=== PATIENT | female | born 1935 | race Caucasian/White ===

== ENCOUNTER 2017-01-31 18:36 | Observation (INO) | payer MEDICARE, OTHER ==
[~2017-01-31] VITALS: Ht 160 cm; Wt 65.0 kg
[2017-01-31 18:41] VITALS: PULSE 67; RESP 18; TEMP 98.8; O2SAT 98
[2017-01-31 18:47] VITALS: BP 178/77; PULSE 65; RESP 18; TEMP 98.8; O2SAT 100
--- NOTE | 2017-01-31 19:17 | PD ---
HPI Chief Complaint: Neuro Symptoms/ Deficits Time Seen by Provider: 19:17 Travel History International Travel<30 days: No Contact w/Intl Traveler<30days: No Traveled to known affect area: No History of Present Illness HPI 81-year-old female came to the emergency room brought by EMS with history of dizziness and blurred vision for 2 hours. Patient seems awake and answering questions appropriately and does not seem to be in any distress. Her daughter is there with her and says she has history of macular degeneration but she has never complained like this before. Patient has history of CVA in the past. She also has history of dementia. No unilateral weakness or numbness. Her vital signs were stable. Speech is clear. No gait abnormality. [facility] Past Medical History Narrative Medical List of her past medical, surgical, social and family history was reviewed from the nursing note. Alzheimer's Disease: Yes Cardiovascular Problems: Yes High Cholesterol: Yes Cerebrovascular Accident: Yes GERD: Yes Hypertension: Yes Seizures: Yes Tetanus Vaccination: Unknown Influenza Vaccination: Yes ?: Not Past Surgical History Cholecystectomy: Yes Genitourinary Surgery: Yes (NEPHRECTOMY ) Hysterectomy: Yes Social History Alcohol Use: Yes (WINE OCCASIONALLY ) Tobacco Use: Yes (09/09 PPD ) Substance Use: No Allergies-Medications (Allergen,Severity, Reaction): Coded Allergies: Baclofen (Verified Allergy, Severe, 01/31/17) Cipro (Verified Allergy, Severe, 01/31/17) Lipitor (Verified Allergy, Severe, 01/31/17) Lyrica (Verified Allergy, Severe, 01/31/17) Neurontin (Verified Allergy, Severe, 01/31/17) Nexium (Verified Allergy, Severe, 01/31/17) Pravachol (Verified Allergy, Severe, 01/31/17) Reglan (Verified Allergy, Severe, 01/31/17) Wellbutrin (Verified Allergy, Severe, 01/31/17) Zanaflex (Verified Allergy, Severe, 01/31/17) Comments Awaiting for the list for allergies. Reported Meds & Prescriptions Reported Meds & Active Scripts Active Reported Acetaminophen ER (Acetaminophen) 650 Mg Tablet.er 650 Mg PO DAILY Sucralfate 1 Gm Tab 1 Gm PO TID on empty stomach Preservision Areds (Multiple Vitamins W/ Minerals) 1 Tab 1 Tab PO DAILY Ditropan (Oxybutynin Chloride) 5 Mg Tab 5 Mg PO DAILY Namenda Xr (Memantine) 28 Mg Caper 28 Mg PO HS Metoprolol Tartrate 25 Mg Tab 25 Mg PO BID Methotrexate 2.5 Mg Tab 2.5 Mg PO Q7D Lovastatin 20 Mg Tab 20 Mg PO HS Levetiracetam 500 Mg Tab 500 Mg PO BID Famotidine 20 Mg Tab 20 Mg PO BID Donepezil 23 Mg Tab 23 Mg PO HS Do not split, crush or chew. Narrative Medication List of her home medications reviewed from the nursing note. Review of Systems Except as stated in HPI: all other systems reviewed are Neg Physical Exam Narrative GENERAL: Awake, alert, elderly, no obvious distress SKIN: Focused skin assessment warm/dry. HEAD: Atraumatic. Normocephalic. EYES: Pupils equal and round. No scleral icterus. No injection or drainage. ENT: No nasal bleeding or discharge. Mucous membranes pink and moist. NECK: Trachea midline. No JVD. CARDIOVASCULAR: Regular rate and rhythm. No murmur appreciated. RESPIRATORY: No accessory muscle use. Clear to auscultation. Breath sounds equal bilaterally. GASTROINTESTINAL: Abdomen soft, non-tender, nondistended. Hepatic and splenic margins not palpable. MUSCULOSKELETAL: No obvious deformities. No clubbing. No cyanosis. No edema. NEUROLOGICAL: Awake and alert. No obvious cranial nerve deficits. Motor grossly within normal limits. Normal speech. NIH stroke score of 0 PSYCHIATRIC: Appropriate mood and affect; insight and judgment normal. Data Data Last Documented VS Vital Signs Date Time Temp Pulse Resp B/P Pulse Ox O2 Delivery O2 Flow Rate FiO2 01/31/17 19:23 67 18 161/79 100 Room Air 01/31/17 18:47 98.8 Orders Electrocardiogram (01/31/17 19:17) Prothrombin Time / Inr (Pt) (01/31/17 19:17) Complete Blood Count With Diff (01/31/17 19:17) Basic Metabolic Panel (Bmp) (01/31/17 19:17) Troponin I (01/31/17 19:17) Ct Brain W/O Iv Contrast(Rout) (01/31/17 19:17) Chest, Single Ap (01/31/17 19:17) Ecg Monitoring (01/31/17 19:17) Iv Access Insert/Monitor (01/31/17 19:17) Oximetry (01/31/17 19:17) Aspirin (Aspirin) (01/31/17 20:45) Admit Order (Ed Use Only) (01/31/17 20:52) Place In Observation (01/31/17 ) Code Status (01/31/17 20:48) Vital Signs (Adult) Q4H (01/31/17 20:48) Neuro Checks Q4H (01/31/17 20:48) Activity Bed Rest With Brp (01/31/17 20:48) Chair Mender / Telemetry .CONTINUOUS (01/31/17 20:48) Diet Heart Healthy (02/01/17 Breakfast) Sodium Chlor 0.9% 1000 Ml Inj (Ns 1000 M (01/31/17 20:48) Sodium Chloride 0.9% Flush (Ns Flush) (01/31/17 21:00) Sodium Chloride 0.9% Flush (Ns Flush) (01/31/17 21:00) Acetaminophen (Tylenol) (01/31/17 21:00) Ondansetron Inj (Zofran Inj) (01/31/17 21:00) Basic Metabolic Panel (Bmp) (02/01/17 06:00) Complete Blood Count With Diff (02/01/17 06:00) Troponin I (01/31/17 20:48) Troponin I (02/01/17 02:48) Scd Bilateral/Knee High RICK.BID (01/31/17 20:48) Naloxone Inj (Narcan Inj) (01/31/17 21:00) Docusate Sodium-Senna (Shama-Colace) (01/31/17 21:00) Magnesium Hydroxide Liq (Milk Of Magnesi (01/31/17 21:00) Sennosides (Senokot) (01/31/17 21:00) Bisacodyl Supp (Dulcolax Supp) (01/31/17 21:00) Lactulose Liq (Lactulose Liq) (01/31/17 21:00) Labs Laboratory Tests Test 01/31/17 19:21 White Blood Count 6.8 TH/MM3 Red Blood Count 4.44 MIL/MM3 Hemoglobin 13.8 GM/DL Hematocrit 40.6 % Mean Corpuscular Volume 91.6 FL Mean Corpuscular Hemoglobin 31.2 PG Mean Corpuscular Hemoglobin 34.0 % Concent Red Cell Distribution Width 14.8 % Platelet Count 214 TH/MM3 Mean Platelet Volume 8.3 FL Neutrophils (%) (Auto) 54.0 % Lymphocytes (%) (Auto) 34.4 % Monocytes (%) (Auto) 9.5 % Eosinophils (%) (Auto) 1.3 % Basophils (%) (Auto) 0.8 % Neutrophils # (Auto) 3.6 TH/MM3 Lymphocytes # (Auto) 2.3 TH/MM3 Monocytes # (Auto) 0.6 TH/MM3 Eosinophils # (Auto) 0.1 TH/MM3 Basophils # (Auto) 0.1 TH/MM3 CBC Comment DIFF FINAL Differential Comment Prothrombin Time 10.0 SEC Prothromb Time International 0.9 RATIO Ratio Sodium Level 132 MEQ/L Potassium Level 4.5 MEQ/L Chloride Level 97 MEQ/L Carbon Dioxide Level 27.3 MEQ/L Anion Gap 8 MEQ/L Blood Urea Nitrogen 7 MG/DL Creatinine 0.80 MG/DL Estimat Glomerular Filtration 69 ML/MIN Rate Random Glucose 79 MG/DL Calcium Level 9.4 MG/DL Troponin I LESS THAN 0.02 NG/ML MDM Medical Decision Making Medical Screen Exam Complete: Yes Emergency Medical Condition: Yes Medical Record Reviewed: Yes Interpretation(s) Twelve-lead EKG was reviewed by me. Normal sinus rhythm, left axis deviation, incomplete right bundle branch block, nonspecific ST-T wave changes. Heart rate of 65 bpm. Differential Diagnosis TIA, CVA, dizziness Narrative Course 8:41 PM CAT scan report is back and no acute changes. Blood test results are acceptable except for mild hyponatremia. Awaiting for the hospitalist to admit the patient for observation. Procedures EKG Prior to Arrival: No Diagnosis Primary Impression: TIA (transient ischemic attack) Qualified Code: G45.9 - Transient cerebral ischemia, unspecified type Additional Impressions: Dizziness Hyponatremia Admitting Information Admitting Physician Requests: Observation Scripts Aspirin DR (Aspirin EC)325 Mg [id number] Mg PO DAILY #30 TAB Ref 0 Prov:Mercedes Holland 02/02/17 Eula Gomez MD January 31, 2017 19:17
[2017-01-31 19:23] VITALS: BP 161/79; PULSE 67; RESP 18; O2SAT 100
[2017-01-31 19:35] LABS: AUTOMATED NEUTROPHIL # 3.6 TH/MM3 (1.8-7.7); BASOPHIL # 0.1 TH/MM3 (0-0.2); BASOPHIL % 0.8 % (0.0-2.0); EOSINOPHIL # 0.1 TH/MM3 (0-0.4); EOSINOPHIL % 1.3 % (0.0-4.0); HEMATOCRIT 40.6 % (35.0-46.0); HEMO FLAGS DIFF FINAL; LYMPH % 34.4 % (9.0-44.0); LYMPHOCYTE # 2.3 TH/MM3 (1.0-4.8); MEAN CELL VOLUME 91.6 FL (80.0-100.0); MEAN CORPUSCULAR HEMOGLOBIN 31.2 PG (27.0-34.0); MONO % 9.5 % (0.0-8.0); PLATELET COUNT 214 TH/MM3 (150-450); RED BLOOD COUNT 4.44 MIL/MM3 (4.00-5.30); RED CELL DISTRIBUTION WIDTH 14.8 % (11.6-17.2); WHITE BLOOD COUNT 6.8 TH/MM3 (4.0-11.0)
[2017-01-31 19:46] LABS: ANION GAP 8 MEQ/L (5-15); BICARBONATE 27.3 MEQ/L (21.0-32.0); BLOOD UREA NITROGEN 7 MG/DL (7-18); CHLORIDE 97 MEQ/L (98-107); GLOMERULAR FILTRATION RATE 69 ML/MIN (>89); POTASSIUM 4.5 MEQ/L (3.5-5.1); SODIUM (NA) 132 MEQ/L (136-145)
[2017-01-31 19:47] LABS: INTERNATIONAL NORMALIZED RATIO 0.9 RATIO
--- NOTE | 2017-01-31 19:51 | RADRPT ---
EXAM DATE/TIME: 01/31/2017 19:28 [facility] COMPARISON: No previous studies available for comparison. INDICATIONS : Cephalgia and blurry vision. RADIATION DOSE: 56.35 CTDIvol (mGy) MEDICAL HISTORY : Alzheimer's Seizures. Cardiovascular diseaseCVA. Hypertension. GERD. SURGICAL HISTORY : Hysterectomy. Cholecystectomy.Nephrectomy. ENCOUNTER: Initial ACUITY: 1 day PAIN SCALE: 0/10 LOCATION: cranial TECHNIQUE: Multiple contiguous axial images were obtained of the head. Using automated exposure control and adj ustment of the mA and/or kV according to patient size, radiation dose was kept as low as reasonably a chievable to obtain optimal diagnostic quality images. FINDINGS: CEREBRUM: The ventricles are normal for age. No evidence of midline shift, mass lesion, hemorrhage or acute in farction. No extra-axial fluid collections are seen. POSTERIOR FOSSA: The cerebellum and brainstem are intact. The 4th ventricle is midline. The cerebellopontine angle i s unremarkable. EXTRACRANIAL: The visualized portion of the orbits is intact. SKULL: The calvaria is intact. No evidence of skull fracture. CONCLUSION: No acute disease. Aurelio Weaver MD FACR on January 31, 2017 at 19:49 Board Certified Radiologist. This report was verified electronically.
[2017-01-31] MEDS ORDERED: FAMO20TA2 PO (19:59)
[2017-01-31] MEDS ORDERED: LOVA20TA PO (19:59)
[2017-01-31] MEDS ORDERED: METH2.5T PO (19:59)
[2017-01-31] MEDS ORDERED: DONE1TAB63 PO (19:59)
[2017-01-31] MEDS ORDERED: OCUVTAB4 PO (19:59)
[2017-01-31] MEDS ORDERED: ACET650T39 PO (19:59)
[2017-01-31] MEDS ORDERED: METO25TA3 PO (19:59)
[2017-01-31] MEDS ORDERED: OXYB5TAB10 PO (19:59)
[2017-01-31] MEDS ORDERED: MEMA28CA PO (19:59)
[2017-01-31] MEDS ORDERED: LEVE500T8 PO (19:59)
[2017-01-31] MEDS ORDERED: SUCR1TAB PO (19:59)
--- NOTE | 2017-01-31 20:18 | RADRPT ---
EXAM DATE/TIME: 01/31/2017 19:58 [facility] COMPARISON: No previous studies available for comparison. INDICATIONS : <<Pressure in head and blurry vision. Patient was hypertensive. MEDICAL HISTORY : Osteoarthritis. Hypertension SURGICAL HISTORY : Spinal rods. ENCOUNTER: Initial ACUITY: 1 day PAIN SCORE: Non-responsive. LOCATION: Bilateral chest FINDINGS: Previous spinal fixation is noted. Heart is minimally enlarged. Pulmonary vascularity is normal. M inimal parenchymal opacity is seen in the left base. Granuloma is seen in the right upper lobe. CONCLUSION: Mild compensated cardiomegaly, negative for an acute process. Aurelio Weaver MD FACR on January 31, 2017 at 20:11 Board Certified Radiologist. This report was verified electronically.
[2017-01-31] MEDS ORDERED: ASPIRIN 325 MG TAB PO ONE (20:45)
[2017-01-31] MEDS ORDERED: BISACODYL 10 MG SUPP RECTAL PRN (21:00)
[2017-01-31] MEDS ORDERED: SODIUM CHLORIDE 0.9% FLUSH 10 ML FLUSH IV FLUSH PRN (21:00)
[2017-01-31] MEDS ORDERED: METHOTREXATE 2.5 MG TAB PO SCH (21:00)
[2017-01-31] MEDS ORDERED: ONDANSETRON HCL 4 MG/2 ML VIAL IVP PRN (21:00)
[2017-01-31] MEDS: DONEPEZIL HCL 23 MG TAB PO SCH (21:00)
[2017-01-31] MEDS: DOCUSATE SODIUM 50 MG/SENNA 8.6 MG TAB PO SCH (21:00)
[2017-01-31] MEDS ORDERED: NALOXONE HCL 0.4 MG/ML AMP IV PRN (21:00)
[2017-01-31] MEDS ORDERED: ACETAMINOPHEN 325 MG TAB PO PRN (21:00)
[2017-01-31] MEDS: FAMOTIDINE 20 MG TAB PO SCH (21:00)
[2017-01-31] MEDS ORDERED: MAGNESIUM HYDROXIDE SUSP 30 ML CUP PO PRN (21:00)
[2017-01-31] MEDS ORDERED: LACTULOSE SYRUP 20 GM/30 ML CUP PO PRN (21:00)
[2017-01-31] MEDS: PRAVASTATIN SOD 20 MG TAB PO SCH (21:00)
[2017-01-31] MEDS: SODIUM CHLORIDE 0.9% FLUSH 10 ML FLUSH IV FLUSH SCH (21:41)
--- NOTE | 2017-01-31 22:27 | RADRPT ---
EXAM DATE/TIME: 01/31/2017 21:38 [facility] COMPARISON: No previous studies available for comparison. INDICATIONS : Transient ischemic attack. MEDICAL HISTORY : Hypercholesterolemia. Hypertension. Gastroesophageal reflux disease. Cerebrovas cular accident. Alzheimer's disease. seizures. SURGICAL HISTORY : Cholecystectomy. Hysterectomy. Nephrectomy. Spinal surgery. ENCOUNTER: Initial ACUITY: 1 day PAIN SCORE: 0/10 LOCATION: Bilateral neck PEAK SYSTOLIC VELOCITIES (cm/sec): ICA/CCA RATIO: Right: 1.3 Left: 1.0 ICA: Right: 111 Left: 86 CCA: Right: 85 Left: 87 ECA: Right: 91 Left: 65 VERTEBRAL: Right: 44 antegrade Left: 47 antegrade Elevated flow velocities and ICA/CCA ratios have been found to correlate with increased degrees of vessel stenosis, calculated as percentage of diameter relative to a normal segment of distal ICA/CCA FINDINGS: RIGHT CAROTID: There is no evidence for a hemodynamically significant carotid stenosis. Minimal int imal hyperplasia is present with scattered calcific plaque. LEFT CAROTID: There is no evidence for a hemodynamically significant carotid stenosis. Minimal inti mal hyperplasia is present with scattered calcific plaque. VERTEBRAL ARTERIES: Flow is antegrade in both vertebral arteries. MISCELLANEOUS: There are no ancillary masses or adenopathy. CONCLUSION: Negative examination for a hemodynamically significant carotid stenosis. Aurelio Weaver MD FACR Board Certified Radiologist. This report was verified electronically.
[2017-01-31 23:02] VITALS: BP 132/60; PULSE 64; RESP 18; TEMP 98.8; O2SAT 98
[2017-02-01] MEDS: SENNOSIDES 8.6 MG TAB PO PRN ×2 (00:40→00:44)
[2017-02-01] MEDS: levETIRAcetam 500 MG TAB PO SCH ×3 (00:40→21:17)
[2017-02-01] MEDS: METOPROLOL TARTRATE 25 MG TAB PO SCH ×3 (00:40→21:00)
[2017-02-01] MEDS: PRAVASTATIN SOD 20 MG TAB PO SCH (00:41)
[2017-02-01] MEDS: SODIUM CHLOR 0.9% 1000 ML INJ 1,000 ML IV SCH ×2 (00:43→17:53)
[2017-02-01] MEDS: SODIUM CHLORIDE 0.9% FLUSH 10 ML FLUSH IV FLUSH SCH ×2 (00:43→21:16)
[2017-02-01 03:54] LABS: AUTOMATED NEUTROPHIL # 2.8 TH/MM3 (1.8-7.7); BASOPHIL # 0.1 TH/MM3 (0-0.2); EOSINOPHIL # 0.1 TH/MM3 (0-0.4); HEMATOCRIT 36.8 % (35.0-46.0); HEMO FLAGS DIFF FINAL; LYMPHOCYTE # 2.5 TH/MM3 (1.0-4.8); MEAN CORPUSCULAR HEMOGLOBIN 30.3 PG (27.0-34.0); MEAN CORPUSCULAR HGB CONC 32.9 % (32.0-36.0); MONO % 13.7 % (0.0-8.0); NEUT % 43.3 % (16.0-70.0); PLATELET COUNT 185 TH/MM3 (150-450); RED CELL DISTRIBUTION WIDTH 14.6 % (11.6-17.2); WHITE BLOOD COUNT 6.4 TH/MM3 (4.0-11.0)
[2017-02-01 03:58] VITALS: BP 96/59; RESP 18; TEMP 98.5; O2SAT 94
[2017-02-01 04:18] LABS: BICARBONATE 28.8 MEQ/L (21.0-32.0); POTASSIUM 3.8 MEQ/L (3.5-5.1)
[2017-02-01 04:20] LABS: HDL CHOLESTEROL 64.4 MG/DL (40.0-60.0)
--- NOTE | 2017-02-01 08:34 | HHI.HP ---
HPI [facility] Primary [facility] Physician Chase Sigala M.D. Admission Diagnosis TIA, dizziness Diagnoses: Chief Complaint: blurry vision, dizziness (Mercedes Holland) Travel History International Travel<30 Days: No Contact w/Intl Traveler <30 Da: No Traveled to Known Affected Are: No (Mercedes Holland) History of Present Illness This is an 81 year old female with hx of CVA, CAD, dementia, macular degeneration, HTN. Presented to ED with c/o dizziness, lightheadedness, headache , blurry vision, could not walk. States vision usually blurry but it was more than usual, head felt "fullness", "did not feel right". No paresthesias, no speech difficulties. Feels that she has problems "thinking". Has hx of dementia but overall answering questions and oriented to self, place, situation and year. Has no focal deficits. States that she ambulates with walker due to RA. Denies other symptoms such as CP, SOB, fever, chills. Labs done in ED were okay , mild hyponatremia. CT head negative. At this time, pt. is back to her baseline. Has no complaints. Pt. admitted for further evaluation and treatment. (Mercedes Holland) Review of Systems ROS Limitations: Poor Historian Constitutional: COMPLAINS OF: Dizziness Eyes: COMPLAINS OF: Blurred vision (chronic blurry vision however more yesterday ) Musculoskeletal: COMPLAINS OF: Joint pain Neurologic: COMPLAINS OF: Headache (head doesn't feel right, feels fullness ) Other memory problems (Mercedes Holland) Past Family Social History Past Medical History HTN CVA Hyperlipidemia CA NH CAD Tobacco abuse Seizure disorder Migraines Dry macular degeneration Dementia RA Past Surgical History Nephrectomy Hysterectomy Spinal surgery Cholecystectomy Reported Medications Reported Meds & Active Scripts Active Reported Acetaminophen ER (Acetaminophen) 650 Mg Tablet.er 650 Mg PO DAILY Sucralfate 1 Gm Tab 1 Gm PO TID on empty stomach Preservision Areds (Multiple Vitamins W/ Minerals) 1 Tab 1 Tab PO DAILY Ditropan (Oxybutynin Chloride) 5 Mg Tab 5 Mg PO DAILY Namenda Xr (Memantine) 28 Mg Caper 28 Mg PO HS Metoprolol Tartrate 25 Mg Tab 25 Mg PO BID Methotrexate 2.5 Mg Tab 2.5 Mg PO Q7D Lovastatin 20 Mg Tab 20 Mg PO HS Levetiracetam 500 Mg Tab 500 Mg PO BID Famotidine 20 Mg Tab 20 Mg PO BID Donepezil 23 Mg Tab 23 Mg PO HS Do not split, crush or chew. (Mercedes Holland) Allergies: Coded Allergies: Baclofen (Verified Allergy, Severe, 01/31/17) Cipro (Verified Allergy, Severe, 01/31/17) Lipitor (Verified Allergy, Severe, 01/31/17) Lyrica (Verified Allergy, Severe, 01/31/17) Neurontin (Verified Allergy, Severe, 01/31/17) Nexium (Verified Allergy, Severe, 01/31/17) Pravachol (Verified Allergy, Severe, 01/31/17) Reglan (Verified Allergy, Severe, 01/31/17) Wellbutrin (Verified Allergy, Severe, 01/31/17) Zanaflex (Verified Allergy, Severe, 01/31/17) Active Ordered Medications Inpatient Medications Acetaminophen (Tylenol) 650 mg Q4H PRN PO TEMP > 100.4; Start 01/31/17 at 21:00 Aspirin 325 mg 325 mg ONCE ONCE PO Last administered on 02/01/17 00:40; Start 01/31/17 at 20:45; Stop 01/31/17 at 20:46; Status DC Bisacodyl (Dulcolax Supp) 10 mg DAILY PRN RECTAL SEVERE CONSITIPATION; Start at 21:00 Donepezil HCl (Aricept) 23 mg HS PO ; Start 01/31/17 at 21:00 Famotidine (Pepcid) 20 mg BID PO ; Start 01/31/17 at 21:00 Lactulose (Lactulose Liq) 30 ml DAILY PRN PO SEVERE CONSITIPATION; Start at 21:00 Levetriacetam (Keppra) 500 mg BID PO Last administered on 02/01/17 00:40; Start 01/31/17 at 21:00 Magnesium Hydroxide (Milk Of Magnesia Liq) 30 ml Q12H PRN PO MILD - MODERATE CONSTIPATION; Start 01/31/17 at 21:00 Methotrexate (Rheumatrex) 2.5 mg Q7D PO Last administered on 02/01/17 00:43; Start 01/31/17 at 21:00 Metoprolol Tartrate (Lopressor) 25 mg BID PO Last administered on 02/01/17 00: 40; Start 01/31/17 at 21:00 Naloxone HCl (Narcan Inj) 0.4 mg UNSCH PRN IV SEE LABEL COMMENTS; Start at 21:00 Ondansetron HCl (Zofran Inj) 4 mg Q6H PRN IVP NAUSEA OR VOMITING; Start at 21:00 Patient Own Medication PT OWN MED: NAMENDA... HS PO Alzheimer Disease; Start at 21:00 Pneumococcal Polyvalent Vaccine (Pneumovax-23 Inj) 25 mcg ONCE ONCE IM ; Start 02/01/17 at 09:00; Stop 02/01/17 at 09:01 Pravastatin Sodium (Pravachol) 20 mg HS PO Last administered on 02/01/17 00:41 ; Start 01/31/17 at 21:00 Senna/Docusate Sodium (Shama-Colace) 1 tab BID PO ; Start 01/31/17 at 21:00 Sennosides (Senokot) 17.2 mg Q12H PRN PO MODERATE - SEVERE CONSTIPATION Last administered on 02/01/17 00:44; Start 01/31/17 at 21:00 Sodium Chloride (NS 1000 ml Inj) 1,000 ml @ 50 mls/hr Q20H IV Last administered on 02/01/17 00:43; Start 01/31/17 at 20:48 Sodium Chloride (NS Flush) 2 ml BID IV FLUSH Last administered on 02/01/17 00: 43; Start 01/31/17 at 21:00 Sucralfate (Carafate) 1 gm TIDAC PO ; Start 02/01/17 at 08:00 Family History Father from ETOH abuse complications Social History Lives at [facility]. Has a daughter who lives close by. No ETOH, smokes 1 ppd every 3 days, no substance abuse. Uses walker for ambulation. (Mercedes Holland) Physical Exam Vital Signs Vital Signs Date Time Temp Pulse Resp B/P Pulse Ox O2 Delivery O2 Flow Rate FiO2 02/01/17 03:58 98.5 18 96/59 94 01/31/17 23:02 98.8 64 18 132/60 98 01/31/17 19:23 67 18 161/79 100 Room Air 01/31/17 18:47 98.8 65 18 178/77 100 Room Air 01/31/17 18:47 63 18 100 Room Air 01/31/17 18:41 98.8 67 18 98 Physical Exam GENERAL: This is a well-nourished, well-developed patient, in no apparent distress. SKIN: No rashes, ecchymoses or lesions. Cool and dry. HEAD: Atraumatic. Normocephalic. No temporal or scalp tenderness. EYES: Pupils equal round and reactive. Extraocular motions intact. No scleral icterus. No injection or drainage. ENT: Nose without bleeding, purulent drainage or septal hematoma. Throat without erythema, tonsillar hypertrophy or exudate. Uvula midline. Airway patent. Left carotid bruit. NECK: Trachea midline. No JVD or lymphadenopathy. Supple, nontender, no meningeal signs. CARDIOVASCULAR: Regular rate and rhythm with soft murmur. RESPIRATORY: Clear to auscultation. Breath sounds equal bilaterally. No wheezes , rales, or rhonchi. GASTROINTESTINAL: Abdomen soft, non-tender, nondistended. No hepato-splenomegaly , or palpable masses. No guarding. MUSCULOSKELETAL: Extremities without clubbing, cyanosis, or edema. No joint tenderness, effusion, or edema noted. No calf tenderness. Negative Homans sign bilaterally. NEUROLOGICAL: Awake, oriented x 3. Poor historian. No focal deficits. Speech clear Laboratory Laboratory Tests Test 01/31/17 02/01/17 19:21 03:35 White Blood Count 6.8 6.4 Red Blood Count 4.44 4.00 Hemoglobin 13.8 12.1 Hematocrit 40.6 36.8 Mean Corpuscular Volume 91.6 92.0 Mean Corpuscular Hemoglobin 31.2 30.3 Mean Corpuscular Hemoglobin 34.0 32.9 Concent Red Cell Distribution Width 14.8 14.6 Platelet Count 214 185 Mean Platelet Volume 8.3 7.7 Neutrophils (%) (Auto) 54.0 43.3 Lymphocytes (%) (Auto) 34.4 40.0 Monocytes (%) (Auto) 9.5 13.7 Eosinophils (%) (Auto) 1.3 2.0 Basophils (%) (Auto) 0.8 1.0 Neutrophils # (Auto) 3.6 2.8 Lymphocytes # (Auto) 2.3 2.5 Monocytes # (Auto) 0.6 0.9 Eosinophils # (Auto) 0.1 0.1 Basophils # (Auto) 0.1 0.1 CBC Comment DIFF FINAL DIFF FINAL Differential Comment Prothrombin Time 10.0 Prothromb Time International 0.9 Ratio Sodium Level 132 137 Potassium Level 4.5 3.8 Chloride Level 97 100 Carbon Dioxide Level 27.3 28.8 Anion Gap 8 8 Blood Urea Nitrogen 7 8 Creatinine 0.80 0.95 Estimat Glomerular Filtration 69 57 Rate Random Glucose 79 82 Calcium Level 9.4 8.9 Troponin I LESS THAN 0.02 LESS THAN 0.02 Triglycerides Level 117 Cholesterol Level 171 LDL Cholesterol 83 HDL Cholesterol 64.4 Cholesterol/HDL Ratio 2.65 (Mercedes Holland) Result Diagram: 02/01/17 0335 02/01/175 Imaging Last Impressions Head CT 01/31/171916 Signed Impressions: Service Date/Time: Tuesday, January 31, 2017 19:28 - CONCLUSION: No acute disease. Aurelio Weaver MD FACR Chest X-Ray 01/31/171916 Signed Impressions: Service Date/Time: Tuesday, January 31, 2017 19:58 - CONCLUSION: Mild compensated cardiomegaly, negative for an acute process. Aurelio Weaver MD FACR Carotid Artery Ultrasound 01/31/17 0000 Signed Impressions: Service Date/Time: Tuesday, January 31, 2017 21:38 - CONCLUSION: Negative examination for a hemodynamically significant carotid stenosis. Aurelio Weaver MD (Mercedes Holland) Assessment and Plan Problem List: (1) TIA (transient ischemic attack) (2) Dizziness (3) Hyponatremia (4) Hyperlipidemia (5) Seizure disorder (6) HTN (hypertension) (7) History of CVA (cerebrovascular accident) (8) Tobacco abuse (9) Hx of migraines (10) Macular degeneration Assessment and Plan Admit to Dr. Nieto 81 year old elderly female with hx of CVA, dementia, HTN, Seizure disorder. Presented to ED with c/o blurry vision, more than usual; dizziness, lightheadedness, headache, could not walk. Initial CT head negative. Pt. now asymptomatic -neuro checks -Neurology consult pending -Continue with ASA 325 mg PO daily -continue statins -Lipid profile results noted, will checks HgbA1C -CUS done, no stenosis. -will order 2D echo, EEG -MRI brain pending -will order PT/OT/ST HTN -permissive HTN -resume home meds Hyperlipidemia -continue home meds -lipid profile done Dementia, stable, forgetful but otherwise appropriate -continue home meds Seizure disorder, doesn't recall last seizure. -continue Keppra, level pending -EEG will be ordered. Hx migraines, states headache did not feel like typical migraines -monitor Tobacco abuse -counseling done, not interested in quitting. Home medications reviewed initiated as indicated. SCDs for DVT prophylaxis Plan of care discussed with attending, RN, and pt. Further management of the pt will be dependent on the hospital course This pt. was seen by myself and Dr. Nieto, this H/P is written on her behalf. ( Mercedes Holland) Assessment and Plan Patient seen and examined still complaining of soreness b/l temples MRI neg orthostatics NEG wants a scooter EEG done results pending Appreciate neuro input ESR PT eval discussed with patient / daughter at bed side discussed with nursing staff discussed with Mercedes GALLEGOS (Mleody Nieto MD) Problem Qualifiers (1) TIA (transient ischemic attack): Qualified Code: G45.9 - Transient cerebral ischemia, unspecified type (2) Hyperlipidemia: Qualified Code: E78.5 - Hyperlipidemia, unspecified hyperlipidemia type (3) HTN (hypertension): Qualified Code: I10 - Essential hypertension Mercedes Holland February 01, 2017 08:34 Melody Nieto MD February 01, 2017 14:08
--- NOTE | 2017-02-01 08:38 | RADRPT ---
EXAM DATE/TIME: 02/01/2017 08:12 [facility] COMPARISON: CT BRAIN W/O CONTRAST, January 31, 2017, 19:28. INDICATIONS : Dizziness. MEDICAL HISTORY : None. SURGICAL HISTORY : Nephrectomy, right. Spinal jovita. ENCOUNTER: Initial ACUITY: 1 day PAIN SCORE: 0/10 LOCATION: cranial TECHNIQUE: Multiplanar, multisequence MRI of the brain was performed without contrast. FINDINGS: CEREBRUM: There is moderate generalized atrophy. Ventricles are prominent but within normal limits given degree of atrophy present. No evidence of midline shift, mass lesion, hemorrhage or acute infarction. No extraaxial fluid collections are seen. The pituitary gland and suprasellar cistern are normal in con figuration. WHITE MATTER: There is moderate severity periventricular and subcortical white matter signal change bilaterally. POSTERIOR FOSSA: The cerebellum and brainstem demonstrate no acute finding. The 4th ventricle is midline. The cerebel lopontine angle is unremarkable. The cerebellar tonsils are normal in position. DIFFUSION IMAGING: No focal areas of restricted diffusion are seen. No evidence of acute infarction. EXTRACRANIAL: The visualized portions of the orbits and paranasal sinuses are unremarkable. CONCLUSION: 1. No acute intracranial abnormality is identified. 2. Chronic changes include generalized atrophy and moderate severity periventricular white matter trisha nge characteristic of chronic microvascular ischemia. Chase Reich MD on February 01, 2017 at 8:31 Board Certified Radiologist. This report was verified electronically.
[2017-02-01] MEDS ORDERED: PNEUMOCOCCAL POLYVALENT INJ 25 MCG/0.5 ML SYR IM ONE (09:00)
[2017-02-01] MEDS: FAMOTIDINE 20 MG TAB PO SCH ×2 (10:46→21:18)
[2017-02-01] MEDS: SUCRALFATE 1 GM TAB PO SCH ×3 (10:46→17:53)
[2017-02-01] MEDS: DOCUSATE SODIUM 50 MG/SENNA 8.6 MG TAB PO SCH ×2 (10:46→21:18)
--- NOTE | 2017-02-01 11:02 | MB ---
cc: CODY CHOI DATE OF CONSULTATION: 02/01/2017 REASON FOR CONSULTATION: HISTORY OF PRESENT ILLNESS: The patient is an 81-year-old right-handed woman with a history of rheumatoid arthritis. She uses a walker at baseline, low blood pressure in the past, hypercholesterolemia, HI, one kidney removed about 10 years ago for kidney cancer, some renal insufficiency possibly versus some bladder incontinence, a stroke about 10 years ago. She had several where she had a headache and fell down. She has had seizures which she decided is petit mal for 20 years but has not had one in the last ten years, on Keppra, as far as I can tell. She is not a very good historian. She feels dizzy if she stands up too quickly and that occurred yesterday. She had some imbalance with that, but yesterday she had a throbbing bitemporal headache. She does not usually have headaches. She has a history of migraines but she has not had them in years. No new medicines. No vision loss. No chest pain or palpitations. She complained in the ER of blurred vision but said she did not have any vision problems to me. She had some macular degeneration. SOCIAL HISTORY: She still is a smoker and I asked her not to especially with a history of possible stroke. She is not a drinker. She lives in assisted living. FAMILY HISTORY: Negative for cancer, seizure, stroke, positive for CAD. REVIEW OF SYSTEMS: She denied any hypertension, diabetes, A-fib, Coumadin, hepatic disease, pulmonary disease, thyroid disease, lupus, ulcer. MEDICATIONS: At the [facility] but this point about [facility] by she complained of the ER for blurred vision but says she denied any vision problems to me she has some macular degeneration. ALLERGIES: NO KNOWN DRUG ALLERGIES. MEDICATIONS 1. Aricept 23 mg at bedtime. 2. Famotidine. 3. Keppra 500 b.i.d. 4. Lovastatin. 5. Methotrexate 6. Metoprolol 7. Namenda XR. 8. Ditropan. 9. Acetaminophen. PHYSICAL EXAMINATION: Afebrile, 18. Blood pressure 96/59 to 178/77. NEUROLOGIC: There are no carotid bruits. Heart was regular rhythm. I did not detect a murmur. Pupils are equal, visual taylor full. Extraocular movements intact without nystagmus. Face is symmetric. Normal sensation. Tongue was midline. No drift. Normal strength in upper and lower extremities bilaterally. DTRs are trace throughout. Toes are downgoing bilaterally. Pinprick is intact throughout. No apparent distress. She did not know the year. She said it was 2015 and was off on the month, November. LABORATORY DATA CBC is normal. Basic metabolic profile, troponin normal. LDL cholesterol normal. Coags normal. Keppra pending. MRI of the brain normal for age. Carotid ultrasound negative. IMAGING STUDIES: Chest x-ray, some cardiomegaly otherwise normal. CT scan of the brain, negative. IMPRESSION: I think she looks well at this time. She sounds like she has some orthostatic hypotension. She felt like her temples were slightly tender, which are particularly tender to me. Will check a sed rate, check some orthostatic blood pressures on her. EEG is being done. I think overall she looks well neurologically. She might have some orthostasis. She appears to have some dementia, although she tells me she is at a genius level. Cognitive function in the past. She said she felt a little disoriented but appears to have some dementia at least by the meds she is on. I will be following her with you in the hospital. I think she could be discharged, however, if her standing blood pressures are fine. We could just keep her on an aspirin a day. A baby aspirin would be fine. I note she has been in sinus rhythm here so far. MD JONATHON Mari/ANILA /10:31 AM /10:49 AM
[2017-02-01 11:41] VITALS: BP_SYST 117; BP_SYST 121; BP_SYST 98; BP_DIAS 53; BP_DIAS 57; BP_DIAS 60; PULSE 71; RESP 18; TEMP 97.4; O2SAT 97
[2017-02-01 11:58] LABS: FREE T4 0.95 NG/DL (0.76-1.46)
[2017-02-01 13:44] VITALS: PULSE 70
--- NOTE | 2017-02-01 14:33 | EKG ---
Date Performed: 01/31/2017 Time Performed: 19:42:03 PTAGE: 81 years EKG: LEFT AXIS DEVIATION RIGHT VENTRICULAR CONDUCTION DISTURBANCE Compared to previous tracing, there is improvement in the R-wave progression across the precordium, otherwise no significant change . ABNORMAL ECG PREVIOUS TRACING : 06/22/1998 20.12 DOCTOR: Vitor Morales Interpretating Date/Time 02/01/2017 14:31:37
[2017-02-01 15:32] VITALS: BP 118/59; PULSE 69; RESP 20; TEMP 98.4; O2SAT 96
[2017-02-01 21:00] VITALS: PULSE 74
[2017-02-01] MEDS ORDERED: PT OWN NAMENDA XR 28 MG PO SCH (21:00)
[2017-02-01] MEDS: DONEPEZIL HCL 23 MG TAB PO SCH (21:17)
[2017-02-01 23:30] VITALS: BP 110/65; PULSE 70; RESP 18; TEMP 98; O2SAT 96
[2017-02-02 04:50] VITALS: BP 147/67; PULSE 70; RESP 18; TEMP 98.5; O2SAT 99
[2017-02-02] MEDS ORDERED: ASPI325T33 PO (07:39)
--- NOTE | 2017-02-02 07:40 | HHI.DCPOC ---
Discharge Care Plan Diagnosis: (1) TIA (transient ischemic attack) (2) Dizziness (3) Hyperlipidemia (4) Hyponatremia (5) Seizure disorder (6) Tobacco abuse (7) Macular degeneration (8) HTN (hypertension) (9) History of CVA (cerebrovascular accident) (10) Hx of migraines Your Health Problems Are: Difficulty with ADL Goals to Promote Your Health * To prevent worsening of your condition and complications * To maintain your health at the optimal level Directions to Meet Your Goals Take your medications as prescribed Follow your dietary instruction Follow activity as directed Keep your appointments as scheduled Take your immunizations and boosters as scheduled If your symptoms worsen call your PCP, if no PCP go to Urgent Care Center or Emergency Room Smoking is Dangerous to Your Health. Avoid second hand smoke Call the 24-hour hour crisis hotline for domestic abuse at [facility]. [facility] February 02, 2017 07:39
[2017-02-02 07:47] VITALS: BP 106/61; PULSE 73; RESP 16; TEMP 97.6; O2SAT 95
--- NOTE | 2017-02-02 08:20 | HHI.PR ---
Subjective Remarks Complaining of not feeling good, states a lot of things are happening Upset because water was spilled on the floor and table Complaining of buttocks been "raw", had loose stool. 1 episode recorded of stool no cp no sob mild headache no dizziness doesn't want HHC, or PT "I'm doing fine" Objective Objective Results - Vital Signs Date Time Temp Pulse Resp B/P Pulse Ox O2 Delivery O2 Flow Rate FiO2 02/02/17 07:47 97.6 73 16 106/61 95 02/02/17 04:50 98.5 70 18 147/67 99 02/01/17 23:30 98.0 70 18 110/65 96 02/01/17 21:00 74 02/01/17 15:32 98.4 69 20 118/59 96 02/01/17 13:44 70 02/01/17 11:41 97.4 71 18 98/57 97 117/53 121/60 Result Diagram: 02/01/17 0335 02/01/17 0335 Imaging Last Impressions Head CT 01/31/171916 Signed Impressions: Service Date/Time: Tuesday, January 31, 2017 19:28 - CONCLUSION: No acute disease. Aurelio Weaver MD FACR Chest X-Ray 01/31/171916 Signed Impressions: Service Date/Time: Tuesday, January 31, 2017 19:58 - CONCLUSION: Mild compensated cardiomegaly, negative for an acute process. Aurelio Weaver MD FACR Carotid Artery Ultrasound 01/31/17 0000 Signed Impressions: Service Date/Time: Tuesday, January 31, 2017 21:38 - CONCLUSION: Negative examination for a hemodynamically significant carotid stenosis. Aurelio Weaver MD Other Results Laboratory Tests Test 02/01/17 09:55 Troponin I LESS THAN 0.02 ROS General: Other (poor historian, 12 point ROS completed, unreliable) Physical Exam Physical Exam GENERAL: This is a well-nourished, well-developed patient, in no apparent distress. SKIN: No rashes, ecchymoses or lesions. Cool and dry. Mild erythema to perineum HEAD: Atraumatic. Normocephalic. No temporal or scalp tenderness. EYES: Pupils equal round and reactive. Extraocular motions intact. No scleral icterus. No injection or drainage. ENT: Nose without bleeding, purulent drainage or septal hematoma. Throat without erythema, tonsillar hypertrophy or exudate. Uvula midline. Airway patent. Left carotid bruit. NECK: Trachea midline. No JVD or lymphadenopathy. Supple, nontender, no meningeal signs. CARDIOVASCULAR: Regular rate and rhythm with soft murmur. RESPIRATORY: Clear to auscultation. Breath sounds equal bilaterally. No wheezes , rales, or rhonchi. GASTROINTESTINAL: Abdomen soft, non-tender, nondistended. No hepato-splenomegaly , or palpable masses. No guarding. MUSCULOSKELETAL: Extremities without clubbing, cyanosis, or edema. No joint tenderness, effusion, or edema noted. No calf tenderness. Negative Homans sign bilaterally. NEUROLOGICAL: Awake, oriented x 3. Poor historian. No focal deficits. Speech jeniffer Urinary Catheter: No Vascular Central Line Catheter: No A/P Diagnosis: (1) TIA (transient ischemic attack) (2) Dizziness (3) Hyponatremia (4) Hyperlipidemia (5) Seizure disorder (6) HTN (hypertension) (7) History of CVA (cerebrovascular accident) (8) Tobacco abuse (9) Hx of migraines (10) Macular degeneration Assessment and Plan 81 year old elderly female with hx of CVA, dementia, HTN, Seizure disorder. Presented to ED with c/o blurry vision, more than usual; dizziness, lightheadedness, headache, could not walk. Initial CT head negative. Pt. now asymptomatic -neuro checks -Neurology input appreciated, no evidence of stroke. Ok with DC and continue ASA -ortho negative now -Continue with ASA 325 mg PO daily -continue statins -Lipid profile done, results noted. HgbA1C done, results (p) -CUS done, no stenosis. -2D echo, EEGn done, results pending -MRI brain negative -PT/OT/ST, recommend rehab. pt. refusing SNF and HHC. CM consult for HHC with PT HTN -bp stable, continue home meds Hyperlipidemia -continue home meds -lipid profile done Dementia, stable, forgetful but otherwise appropriate -continue home meds Seizure disorder, doesn't recall last seizure. -continue Keppra, level pending -EEG will be ordered. Hx migraines, states headache did not feel like typical migraines -monitor -has mild headache, resolving Tobacco abuse -counseling done, not interested in quitting. Skin care ordered SCDs for DVT prophylaxis CM for DC planning, [facility] with PT Discharge later today after echo and EEG results back F/U PCP Diet-heart healthy Activity-as tolerated D/W RN D/W Dr. Nieto D/W pt. This pt. was seen by myself and Dr. Nieto, this note is written on her behalf. Problem Qualifiers (1) TIA (transient ischemic attack): Qualified Code: G45.9 - Transient cerebral ischemia, unspecified type (2) Hyperlipidemia: Qualified Code: E78.5 - Hyperlipidemia, unspecified hyperlipidemia type (3) HTN (hypertension): Qualified Code: I10 - Essential hypertension [facility] February 02, 2017 08:20
[2017-02-02] MEDS: FAMOTIDINE 20 MG TAB PO SCH (08:21)
[2017-02-02] MEDS: levETIRAcetam 500 MG TAB PO SCH (08:21)
[2017-02-02] MEDS: SUCRALFATE 1 GM TAB PO SCH ×2 (08:21→13:10)
[2017-02-02 08:22] VITALS: PULSE 101
[2017-02-02] MEDS: SODIUM CHLORIDE 0.9% FLUSH 10 ML FLUSH IV FLUSH SCH (08:22)
[2017-02-02] MEDS: METOPROLOL TARTRATE 25 MG TAB PO SCH (08:24)
[2017-02-02] MEDS: DOCUSATE SODIUM 50 MG/SENNA 8.6 MG TAB PO SCH (08:24)
[2017-02-02] MEDS ORDERED: ASPIRIN EC 325 MG TABEC PO SCH (09:00)
--- NOTE | 2017-02-02 09:26 | HHI.FF ---
Face to Face Verification Diagnosis: (1) TIA (transient ischemic attack) (2) Dizziness (3) Hyperlipidemia (4) Hyponatremia (5) Seizure disorder (6) Tobacco abuse (7) Macular degeneration (8) HTN (hypertension) (9) History of CVA (cerebrovascular accident) (10) Hx of migraines Physical Therapy Order: Evaluate and Treat Home Health Nursing Order: Medical education Nursing assessment with vital signs I have seen patient Natalia Glynn on 02/02/17. My clinical findings support the need for the requested home health care services because: Deconditioned w/ increased weakness Need for psychosocial assistance Impaired cognition/judgement I certify that my clinical findings support that this patient is homebound because: Impaired cognitive ability/safety Unsafe to leave home unassisted Need for psychosocial assistance [facility] February 02, 2017 09:26
--- NOTE | 2017-02-02 10:46 | MG ---
cc: CODY CHOI M.D. Lab No: Date: 02/02/2017 Age: Sex: F Race: ELECTROENCEPHALOGRAM NUMBER [id number] INTRODUCTION An 81-year-old woman. Dizziness, blurred vision, headaches, stroke, dementia. MEDICATIONS 1. Keppra. 2. Pravachol. 3. Aspirin. 4. Namenda. DESCRIPTION The recording shows diffuse beta rhythms. The recording overall is synchronous and symmetrical. Theta rhythms phase reverse in a small field over P4 at epoch 10 but did not look particularly epileptiform, although again there is some slight rhythm in that same region at epoch 14. Photic stimulation is performed with some mild symmetrical posterior driving. Again some focal prominent beta rhythms are seen over the right parietal head region. Some diffuse theta slowing is noted. Another sharp contoured wave seen at epoch 52 over the same head region. The patient appears to fall asleep. Did not quite reach stage II sleep. IMPRESSION The right parietal region has some focal rhythm abnormality, some phase reversing there. A right parietal lesion should be ruled out. Clinical correlation is needed. MD JONATHON Mari/KK /10:23 AM /10:20 AM
--- NOTE | 2017-02-02 10:47 | HHI.PR ---
Subjective Remarks no new co sr Objective Vital Signs Date Time Temp Pulse Resp B/P Pulse Ox O2 Delivery O2 Flow Rate FiO2 02/02/17 08:22 101 02/02/17 07:47 97.6 73 16 106/61 95 02/02/17 04:50 98.5 70 18 147/67 99 02/01/17 23:30 98.0 70 18 110/65 96 02/01/17 21:00 74 02/01/17 15:32 98.4 69 20 118/59 96 02/01/17 13:44 70 02/01/17 11:41 97.4 71 18 98/57 97 117/53 121/60 Result Diagram: 02/01/17 0335 02/01/17 0335 Other Results mri us standing bp labs esr ok eeg r parietal few small sharps not malignant Objective Remarks awake alert gait steady not month Assessment and Plan Assessment and Plan imp ok dc by me idw daughter tenisha neg could inc her keppra if she were to have a definite sz but not now she will have ua checked at urology tomorrow Tank Lopez MD February 02, 2017 10:47
[2017-02-02 11:44] VITALS: BP 133/61; PULSE 79; RESP 18; TEMP 97.8; O2SAT 95
--- NOTE | 2017-02-02 11:45 | EC ---
Study Study Date:02/02/2017 STUDY CONCLUSIONS SUMMARY - Left ventricle: The cavity size was normal. Wall thickness was normal. Systolic function was normal. The estimated ejection fraction was in the range of 55% to 60%. Wall motion was normal; there were no regional wall motion abnormalities. Doppler parameters are consistent with abnormal left ventricular relaxation (grade 1 diastolic dysfunction). - Aortic valve: Valve area: 1.7cm^2(VTI). Valve area: 1.6cm^2 (Vmax). - Mitral valve: Moderately calcified annulus. - Pulmonary arteries: PA peak pressure: 36mm Hg (S). If LV function is below 40, please consider prescribing an ACEI or ARB or document rationale for non-use. PROCEDURE DATA STUDY STATUS: Elective. Procedure: Transthoracic echocardiography. Image quality was suboptimal. Scanning was performed from the parasternal, apical, and subcostal acoustic windows. Study completion: The patient tolerated the procedure well. Transthoracic echocardiography. M-mode, complete 2D, complete spectral Doppler, and color Doppler. Height: Height: 63in. Weight: Weight: 142.7lb. Body mass index: BMI: 25.3kg/m^2. Body surface area: BSA: 1.68m^2. Patient status: Inpatient. CARDIAC ANATOMY LEFT VENTRICLE: The cavity size was normal. Wall thickness was normal. Systolic function was normal. The estimated ejection fraction was in the range of 55% to 60%. Wall motion was normal; there were no regional wall motion abnormalities. Doppler parameters are consistent with abnormal left ventricular relaxation (grade 1 diastolic dysfunction). AORTIC VALVE: Poorly visualized. Doppler: Transvalvular velocity was within the normal range. There was no stenosis. No regurgitation. Valve area: 1.7cm^2(VTI). Indexed valve area: 1.01cm^2/m^2 (VTI). Valve area: 1.6cm^2 (Vmax). Indexed valve area: 0.95cm^2/m^2 (Vmax). Mean gradient: 4mm Hg (S). AORTA: Aortic root: The aortic root was normal in size. MITRAL VALVE: Not well visualized. Moderately calcified annulus. Doppler: Transvalvular velocity was within the normal range. There was no evidence for stenosis. Trace regurgitation. Peak gradient: 3mm Hg (D). LEFT ATRIUM: The atrium was normal in size. RIGHT VENTRICLE: The cavity size was normal. Wall thickness was normal. PULMONIC VALVE: Poorly visualized. Doppler: Transvalvular velocity was within the normal range. There was no evidence for stenosis. No regurgitation. TRICUSPID VALVE: Poorly visualized. Doppler: Transvalvular velocity was within the normal range. Trace regurgitation. PULMONARY ARTERY: The main pulmonary artery was normal-sized. Systolic pressure was within the normal range. RIGHT ATRIUM: The atrium was normal in size. PERICARDIUM: There was no pericardial effusion. SYSTEMIC VEINS: Inferior vena cava: Not visualized. Patient weight: 142.7lb _Ejection fraction:_ 65-75% _Fractional shortening:_ 32% up to 5Kg 5-11.5Kg 11.6-22.9Kg 23-45Kg 45-57Kg Aortic Root 7-13 <17 13-22 17-27 17-27 LA diam 6-13 <23 24-38 33-47 37-40 RVID 10-17 7-15 7-15 7-18 8-17 LVIDd 12-22 <32 24-38 33-47 37-40 LVPW 2-4 3-6 5-7 6-8 7-8 IVS 2-4 3-6 5-7 6-8 7-8 BASIC MEASUREMENTS ADULT NORMAL Left ventricle LV internal dimension, ED, chordal *37.6 mm 43-52 level, PLAX LV internal dimension, ES, chordal 27.7 mm 23-38 level, PLAX Fractional shortening, chordal level, *26 % >29 PLAX LV posterior wall thickness, ED 7.92 mm IVS/LVPW ratio, ED 1.05 <1.3 Ventricular septum Septal thickness, ED 8.33 mm Aortic valve Leaflet separation 15 mm 15-26 Aorta Root diameter, ED 25 mm BASIC MEASUREMENTS ADULT NORMAL Aortic valve Leaflet separation 15 mm 15-26 DOPPLER MEASUREMENTS ADULT NORMAL Main pulmonary artery Pressure, S *36 mm Hg =30 Aortic valve Peak velocity, S 141 cm/s Mean velocity, S 85.4 cm/s VTI, S 27.3 cm Mean gradient, S 4 mm Hg Valve area, VTI 1.7 cm^2 Valve area index, VTI 1.01 cm^2/m^2 Valve area, Vmax 1.6 cm^2 Valve area index, Vmax 0.95 cm^2/m^2 Mitral valve Peak E-wave velocity 83.9 cm/s Peak A-wave velocity 120 cm/s Deceleration time *232 ms 150-230 Peak gradient, D 3 mm Hg Peak E/A ratio 0.7 Tricuspid valve Regurgitant peak velocity 240 cm/s Peak RV-RA gradient, S 23 mm Hg Maximal regurgitant velocity 240 cm/s Systemic veins Estimated CVP 10 mm Hg Right ventricle RV pressure, S *37 mm Hg <30 Pulmonic valve Peak velocity, S 54.9 cm/s LEGEND: Mean values are shown as u=mean value. Asterisk (*) quintanilla values outside specified normal range. Prepared and signed by Mark Baugh [id number]
[2017-02-02] MEDS: SODIUM CHLOR 0.9% 1000 ML INJ 1,000 ML IV SCH (13:13)
--- NOTE | 2017-02-02 19:52 | HHI.DS ---
Discharge Summary Admission Date January 31, 2017 at 20:56 Discharge Date: February 02, 2017 Admitting Diagnosis TIA, dizziness (1) TIA (transient ischemic attack) (2) Dizziness (3) Hyponatremia (4) Hyperlipidemia (5) Seizure disorder (6) HTN (hypertension) (7) History of CVA (cerebrovascular accident) (8) Tobacco abuse (9) Hx of migraines (10) Macular degeneration CBC/BMP: 02/01/17 0335 02/01/17 0335 Significant Findings Laboratory Tests Test 01/31/17 02/01/17 02/01/17 19:21 03:35 09:55 Monocytes (%) (Auto) 9.5 % (0.0-8.0) 13.7 % (0.0-8.0) Sodium Level 132 MEQ/L (136-145) Chloride Level 97 MEQ/L (98-107) Estimat Glomerular Filtration 69 ML/MIN (>89) 57 ML/MIN (>89) Rate Troponin I LESS THAN 0.02 LESS THAN 0.02 LESS THAN 0.02 NG/ML NG/ML NG/ML (0.02-0.05) (0.02-0.05) (0.02-0.05) HDL Cholesterol 64.4 MG/DL (40.0-60.0) Imaging Last Impressions Brain MRI 02/01/17 0000 Signed Impressions: Service Date/Time: Wednesday, February 01, 2017 08:12 - CONCLUSION: 1. No acute intracranial abnormality is identified. 2. Chronic changes include generalized atrophy and moderate severity periventricular white matter change characteristic of chronic microvascular ischemia. Chase Reich MD Head CT 01/31/171916 Signed Impressions: Service Date/Time: Tuesday, January 31, 2017 19:28 - CONCLUSION: No acute disease. Aurelio Weaver MD FACR Chest X-Ray 01/31/171916 Signed Impressions: Service Date/Time: Tuesday, January 31, 2017 19:58 - CONCLUSION: Mild compensated cardiomegaly, negative for an acute process. Aurelio Weaver MD FACR Carotid Artery Ultrasound 01/31/17 0000 Signed Impressions: Service Date/Time: Tuesday, January 31, 2017 21:38 - CONCLUSION: Negative examination for a hemodynamically significant carotid stenosis. Aurelio Weaver MD Hospital Course This is an 81 year old female with hx of CVA, CAD, dementia, macular degeneration, HTN. Presented to ED with c/o dizziness, lightheadedness, headache , blurry vision, could not walk. States vision usually blurry but it was more than usual, head felt "fullness", "did not feel right". No paresthesias, no speech difficulties. [place] that she has problems "thinking". Has hx of dementia but overall answering questions and oriented to self, place, situation and year. Has no focal deficits. Stated that she ambulates with walker due to RA. Denied other symptoms such as CP, SOB, fever, chills. Labs done in ED were okay , mild hyponatremia. CT head negative. At this time, pt. is back to her baseline. Has no complaints. Pt. admitted for further evaluation and treatment. (1) TIA (transient ischemic attack) (2) Dizziness (3) Hyponatremia (4) Hyperlipidemia (5) Seizure disorder (6) HTN (hypertension) (7) History of CVA (cerebrovascular accident) (8) Tobacco abuse (9) Hx of migraines (10) Macular degeneration Assessment and Plan 81 year old elderly female with hx of CVA, dementia, HTN, Seizure disorder. Presented to ED with c/o blurry vision, more than usual; dizziness, lightheadedness, headache, could not walk. Initial CT head negative. Pt. now asymptomatic -neuro checks done, improved -Neurology input appreciated, no evidence of stroke. Ok with DC and continue ASA -initially dizzy, orthos done, negative -Continued with ASA 325 mg PO daily -continued statins -Lipid profile done, results noted. HgbA1C done, results (p) -CUS done, no stenosis. -2D echo EF 55 to 60%, EEG normal -MRI brain negative -PT/OT/ST, recommend rehab. pt. refusing SNF and HHC. CM consult for HHC with PT -no more neuro changes, cleared by neurology for dc HTN -bp stable, continued home meds Hyperlipidemia -continued home meds -lipid profile done Dementia, stable, forgetful but otherwise appropriate -continued home meds Seizure disorder, doesn't recall last seizure. -continue Keppra, level pending -EEG ok Hx migraines, states headache did not feel like typical migraines -monitor -had mild headache, resolving Tobacco abuse -counseling done, not interested in quitting. Skin care ordered SCDs for DVT prophylaxis CM for DC planning, HHC with PT Pt. stable, discharged to [facility] Instructed to: F/U PCP Diet-heart healthy Activity-as tolerated Pt Condition on Discharge: Stable Discharge Disposition: [facility]/SKILLED NURSING Discharge Instructions DIET: Follow Instructions for: Heart Healthy Diet Activities you can perform: Weight Bearing as Severiano Follow up Referrals: PCP Follow-up New Medications: Aspirin DR (Aspirin EC) 325 Mg Tabdr 325 MG PO DAILY Stroke Prevention #30 Ref 0 TAB Continued Medications: Acetaminophen (Acetaminophen ER) 650 Mg Tablet.er 650 MG PO DAILY Donepezil (Donepezil) 23 Mg Tab 23 MG PO HS Do not split, crush or chew. Dementia #30 Ref 0 TAB Famotidine (Famotidine) 20 Mg Tab 20 MG PO BID #60 Ref 0 TAB Levetiracetam (Levetiracetam) 500 Mg Tab 500 MG PO BID Control Seizures #60 Ref 0 TAB Lovastatin (Lovastatin) 20 Mg Tab 20 MG PO HS Cholesterol Management #30 Ref 0 TAB Memantine Er (Namenda Xr) 28 Mg Caper 28 MG PO HS Alzheimer Disease #30 Ref 0 CAP Methotrexate (Methotrexate) 2.5 Mg Tab 2.5 MG PO Q7D Ref 0 TAB Metoprolol Tartrate (Metoprolol Tartrate) 25 Mg Tab 25 MG PO BID #60 Ref 0 TAB Multiple Vitamins W/ Minerals (Preservision Areds) 1 Tab 1 TAB PO DAILY Nutritional Supplement Ref 0 TAB Oxybutynin (Ditropan) 5 Mg Tab 5 MG PO DAILY Urinary Symptom Managemen #60 Ref 0 TAB Sucralfate (Sucralfate) 1 Gm Tab 1 GM PO TID on empty stomach Duodenal ulcer #90 Ref 0 TAB [facility]dees [facility] February 02, 2017 19:52
[2017-02-03 08:15] LABS: HEMOGLOBIN A1a 0.9 %; HEMOGLOBIN Ao 84.9 %; HEMOGLOBIN LA1C 2.3 %; HEMOGLOBIN P3 5.3 %
[2017-02-03 11:10] LABS: RAPID PLASMA REAGIN SCREEN NON-REACTIVE (NON-REACTVE)
== END 2017-02-02 14:55 | disposition home or self-care (01) ==
LOC: NEPE 18:36 → NEDA 20:56 → NEPHCDU 22:10
PROVIDERS: ADMIT Internal Medicine; ATTEND Internal Medicine
DX: G45.9 Transient cerebral ischemic attack, unspecified (principal); E87.1 Hypo-osmolality and hyponatremia; E78.5 Hyperlipidemia, unspecified; G40.909 Epilepsy, unspecified, not intractable, without status epilepticus; I10 Essential (primary) hypertension; H35.30 Unspecified macular degeneration; M06.9 Rheumatoid arthritis, unspecified; I25.2 Old myocardial infarction; I25.10 Atherosclerotic heart disease of native coronary artery without angina pectoris; F02.80 Dementia in other diseases classified elsewhere, unspecified severity, without behavioral disturbance, psychotic disturbance, mood disturbance, and anxiety; G30.9 Alzheimer's disease, unspecified; F17.200 Nicotine dependence, unspecified, uncomplicated; E78.00 Pure hypercholesterolemia, unspecified; K21.9 Gastro-esophageal reflux disease without esophagitis; Z90.5 Acquired absence of kidney; Z88.1 Allergy status to other antibiotic agents; Z88.8 Allergy status to other drugs, medicaments and biological substances; Z86.73 Personal history of transient ischemic attack (TIA), and cerebral infarction without residual deficits; Z85.528 Personal history of other malignant neoplasm of kidney
CPT/HCPCS: 70450; 70551; 71010; 76937; 80048; 80061; 80177; 82607; 83036; 83921; 84425; 84439; 84443; 84450; 84460; 84484; 85025; 85610; 85652; 86592; 93005; 93306; 93880; 95819; 97162; 97166; 99285; G0378; G8987; G8988; G8989; J7030; J8610

== ENCOUNTER 2018-08-29 17:55 | Observation (INO) ==
--- NOTE | 2018-08-29 18:08 | ED ---
HPI General Chief Complaint: Chest Pain Stated Complaint: chest pain Time Seen by Provider: 08/29/18 17:57 Source: patient, EMS and RN notes reviewed Mode of arrival: EMS Limitations: no limitations History of Present Illness HPI narrative: 83 y/o female presents by ambulance with note of chest pain this afternoon. She took 1 of her own nitroglycerin and is feeling better. The ambulance team gave her 324 mg of aspirin. She states about 4 or 5 years ago she had a heart attack when she had a stroke but denies any stent or bypass surgery. She states she does not follow with a studio owner. She does not recall her last cardiac workup. She denies any other concurrent complaints. Symptoms started shortly prior to arrival she states. She lives at an assisted living facility. Related Data Home Medications Medication Instructions Recorded Confirmed digoxin [Lanoxin] 0.25 mg PO DAILY 08/29/18 08/29/18 fluticasone [Flovent HFA] 1 puff INHALATION Q12H 08/29/18 08/29/18 folic acid 1 mg PO DAILY 08/29/18 08/29/18 levetiracetam [Keppra] 500 mg PO BID 08/29/18 08/29/18 lovastatin 40 mg PO HS 08/29/18 08/29/18 memantine [Namenda XR] 28 mg PO HS 08/29/18 08/29/18 methotrexate sodium 2.5 mg PO WEEKLY 08/29/18 08/29/18 multivitamin 1 tab PO DAILY 08/29/18 08/29/18 prednisone 10 mg PO DAILY 08/29/18 08/29/18 ranitidine HCl [Zantac] 150 mg PO BID 08/29/18 08/29/18 sucralfate [Carafate] 1 g PO ACHS 08/29/18 08/29/18 Allergies Allergy/AdvReac Type Severity Reaction Status Date / Time atorvastatin Allergy Severe Unverified 04/21/17 20:03 baclofen Allergy Severe Unverified 04/21/17 20:03 bupropion Allergy Severe Unverified 04/21/17 20:03 ciprofloxacin Allergy Severe Unverified 04/21/17 20:03 esomeprazole Allergy Severe Unverified 04/21/17 20:03 gabapentin Allergy Severe Unverified 04/21/17 20:03 metoclopramide Allergy Severe Unverified 04/21/17 20:03 pravastatin Allergy Severe Unverified 04/21/17 20:03 pregabalin Allergy Severe Unverified 04/21/17 20:03 tizanidine Allergy Severe Unverified 04/21/17 20:03 Review of Systems ROS: all other systems reviewed are negative PMFSH History History Provided By: Patient (mi, stroke) Social History Social History Recent Travel in [facility] within the Last 8 Weeks: No Recent Out of Country Travel within the Last 8 Weeks: No Exam Narrative Exam Narrative: GENERAL: 83 y/o female in no apparent distress SKIN: Focused skin assessment warm/dry. HEAD: Atraumatic. Normocephalic. EYES: Pupils equal and round. No scleral icterus. No injection or drainage. ENT: No nasal bleeding or discharge. Mucous membranes pink and moist. NECK: Trachea midline. CARDIOVASCULAR: Regular rate and rhythm. RESPIRATORY: No accessory muscle use. Clear to auscultation. Breath sounds equal bilaterally. GASTROINTESTINAL: Abdomen soft, non-tender, nondistended. MUSCULOSKELETAL: No obvious deformities. No clubbing. No cyanosis. NEUROLOGICAL: Awake and alert. Motor grossly within normal limits. Normal speech. PSYCHIATRIC: Appropriate mood and affect; insight and judgment normal. Course Initial Documented Vital Signs Pulse Oximetry 98 08/29/18 18:03 Last Documented Vital Signs Temperature 98.4 F 08/29/18 18:14 Pulse Rate 93 H 08/29/18 18:14 Respiratory Rate 16 08/29/18 18:14 Blood Pressure 132/72 08/29/18 18:14 Pulse Oximetry 98 08/29/18 18:14 Medical Decision Making [facility] Narrative Medical decision making narrative: We will check blood work, chest x-ray and if workup is normal will place in the chest pain center Medical Screen Exam Complete: Yes Emergency Medical Condition: Yes Differential Diagnosis Differential Diagnosis: ID, gastritis, musculoskeletal Lab Data Result diagrams: 08/29/18 18:35 08/29/18 18:35 Imaging Data Radiologist's impression: Chest X-Ray 08/29/18 18:03 CONCLUSION: 1. Cardiomegaly. 2. Discoid atelectasis and/or scarring within the left lung base. 3. Stable calcified granuloma within the right upper lobe. 4. Degenerative changes throughout the thoracic spine. Discharge Plan Discharge Disposition Patient Disposition: Sign Out(ED Internal Use Only) Discharge Details Diagnosis: Chest pain Physicians Team ED Provider: Paloma Bass Primary Care Provider: Chase Sigala Rxs /Orders / Referrals /Forms Prescriptions: No Action multivitamin Tablet 1 tab PO DAILY RF: 0 prednisone 10 mg Tablet 10 mg PO DAILY RF: 0 levetiracetam [Keppra] 500 mg Tablet 500 mg PO BID RF: 0 sucralfate [Carafate] 1 gram Tablet 1 g PO ACHS RF: 0 digoxin [Lanoxin] 250 mcg Tablet 0.25 mg PO DAILY RF: 0 methotrexate sodium 2.5 mg Tablet 2.5 mg PO WEEKLY RF: 0 ranitidine HCl [Zantac] 150 mg Tablet 150 mg PO BID RF: 0 folic acid 1 mg Tablet 1 mg PO DAILY RF: 0 lovastatin 20 mg Tablet 40 mg PO HS RF: 0 fluticasone [Flovent HFA] 110 mcg/actuation Hfa Aerosol Inhaler 1 puff INHALATION Q12H RF: 0 memantine [Namenda XR] 28 mg Capsule,Sprinkle,Er 24hr 28 mg PO HS RF: 0 Discharge Instructions Patient Printed Instructions: Chest Pain (ED) Status ED Status: With Doctor
--- NOTE | 2018-08-29 18:54 | XR ---
EXAM DATE: 08/29/2018 6:49 PM EST AGE/SEX: 83 years / Female INDICATIONS: Chest pain. CLINICAL DATA: This is the patient's initial encounter. Patient reports that signs and symptoms have been present for 1 day and indicates a pain score of 0/10. MEDICAL/SURGICAL HISTORY: . . Nephrectomy, right. Spinal jovita. COMPARISON: [facility] [place], CHEST SINGLE AP, 01/31/2017. . FINDINGS: The heart is enlarged. Discoid atelectasis and/or scarring is noted within left lung base. Calcified granuloma is noted within the right upper lobe. No pulmonary edema or focal infiltrate is noted. Dege nerative changes are noted throughout the thoracic spine. Hardware is noted within the thoracolumbar spine. CONCLUSION: 1. Cardiomegaly. 2. Discoid atelectasis and/or scarring within the left lung base. 3. Stable calcified granuloma within the right upper lobe. 4. Degenerative changes throughout the thoracic spine. Electronically signed by: Jhonny Rosales MD Board Certified Radiologist 08/29/2018 6:52 PM EST
[2018-08-29 19:10] LABS: Baso # (Auto) 0.1 th/mm3 (0.0-0.2); Baso % (Auto) 0.7 % (0.0-2.0); Eos # (Auto) 0.1 th/mm3 (0.0-0.4); Eos % (Auto) 0.7 % (0.0-4.0); Hematocrit 39.1 % (35.0-46.0); Hemoglobin 13.5 gm/dL (11.6-15.3); Lymph # (Auto) 2.6 th/mm3 (1.0-4.8); Lymph % (Auto) 23.2 % (9.0-44.0); Mean Corpuscular HGB Conc 34.6 % (32.0-36.0); Mean Corpuscular Hemoglobin 32.7 pg (27.0-34.0); Mean Corpuscular Volume 94.5 fL (80.0-100.0); Mean Platelet Volume 7.8 fL (7.0-11.0); Neut # (Auto) 7.4 th/mm3 (1.8-7.7); Neut % (Auto) 66.4 % (16.0-70.0); Platelet Count 255 th/mm3 (150-450); Red Blood Count 4.14 mil/mm3 (4.00-5.30); Red Cell Distribution Width 13.9 % (11.6-17.2); White Blood Count 11.1 th/mm3 (4.0-11.0)
[2018-08-29 19:26] LABS: INR 0.9 Ratio; Prothrombin Time 9.5 sec (9.8-11.6)
[2018-08-29 19:31] LABS: Alanine Aminotransferase 26 U/L (10-53)
[2018-08-29 19:42] LABS: Albumin 3.4 g/dL (3.4-5.0); Alkaline Phosphatase 76 U/L (45-117); Anion Gap 7 meq/L (5-15); Aspartate Aminotransferase 20 U/L (15-37); Blood Urea Nitrogen 18 mg/dL (7-18); Calcium 9.4 mg/dL (8.5-10.1); Carbon Dioxide 27.9 meq/L (21.0-32.0); Chloride 99 meq/L (98-107); Creatine Kinase 42 U/L (26-192); Glomerular Filtration Rate 49 mL/min (>89); Glucose,Random 108 mg/dL (74-106); Magnesium 2.3 mg/dL (1.5-2.5); Potassium 4.1 meq/L (3.5-5.1); Sodium 134 meq/L (136-145); Total Protein 6.5 g/dL (6.4-8.2)
[2018-08-29] MEDS ORDERED: Acetaminophen 500 MG Tablet PO PRN (20:41)
[2018-08-29 22:35] LABS: Creatine Kinase 39 U/L (26-192)
[2018-08-30 02:56] LABS: Creatine Kinase 67 U/L (26-192)
--- NOTE | 2018-08-30 07:54 | P.HPCA ---
History of Present Illness Primary Care Physician: Chase Sigala MD Chief Complaint: Chest pain History of Present Illness: 83 year old female with history of dementia, RA, hyperlipidemia, COPD, hypertension, and CVA presents emergency room for further evaluation of chest pain. Patient is a poor historian. Reports substernal chest pressure yesterday , nonexertional. Unable to describe characteristic. No radiation. No associated symptoms of nausea, vomiting, dyspnea, diaphoresis. No precipitating factors. Reports wearing Nitroglycerin bottle around her neck, took one tablet without relief. Relieving factors unknown, states medication given in [place] relieved pain. No further chest pain. Reports having a heart attack 4-5 years ago states cardiac stent placed. Does not follow with a fruit pitter. No recent illness, fever, or injury. Lives at an assisted living. Reports taking 31 pills, unable to recall names or reasons for medications. Past cardiac testing Cannot recall any recent cardiac testing. Does not follow with a fruit pitter. Social history Known hyperlipidemia and hypertension. No known diabetes. Current half a pack a day smoker. No alcohol use. Walks independently. Lives in an assisted living. - Diagnosis (1) Nonspecific chest pain (2) Tobacco abuse Review of Systems All other systems reviewed negative except as stated in HPI PMFSH - History History Provided By: Patient - Medical History Medical History: Medical History (Last Updated 08/30/18 @ 11:24 by ROSY Simons) COPD (chronic obstructive pulmonary disease) H/O: hysterectomy HTN (hypertension) Hyperlipidemia Rheumatoid arthritis Smoker Stroke - Surgical History Surgical History: Surgical History (Last Reviewed 08/30/18 @ 11:25 by ROSY Simons) History of appendectomy History of nephrectomy - Tobacco History Second Hand Smoke Exposure: Yes Tobacco Use In Past 30 Days: Yes Smoking Status: Current every day smoker Tobacco Type: Cigarettes Packs Per Day: 0.5 - Alcohol History How Often Do You Have a Drink Containing Alcohol: Never - Substance Use History Substance History: No History of Abuse - Travel History Recent Travel in the [place] Within the Last 8 Weeks: No Recent Travel Out of the Country Within the Last 8 Weeks: No - Immunization History Tetanus Immunization: Unsure Medications and Allergies Active Medications: Active Medications Acetaminophen (Tylenol) 500 mg PO Q4H PRN PRN Reason: HEADACHE Sodium Chloride (Ns Flush) 2 ml IV.FLUSH UNSCH PRN PRN Reason: FLUSH AFTER USING IV ACCESS Sodium Chloride (Ns Flush) 2 ml IV.FLUSH BID LEEANN Last Admin: 08/29/18 21:52 Dose: 2 ml Sodium Chloride (Ns Flush) 2 ml IV.FLUSH PRN PRN PRN Reason: FLUSH AFTER USING IV ACCESS Allergies Allergy/AdvReac Type Severity Reaction Status Date / Time atorvastatin Allergy Severe Unverified 04/21/17 20:03 baclofen Allergy Severe Unverified 04/21/17 20:03 bupropion Allergy Severe Unverified 04/21/17 20:03 ciprofloxacin Allergy Severe Unverified 04/21/17 20:03 esomeprazole Allergy Severe Unverified 04/21/17 20:03 gabapentin Allergy Severe Unverified 04/21/17 20:03 metoclopramide Allergy Severe Unverified 04/21/17 20:03 pravastatin Allergy Severe Unverified 04/21/17 20:03 pregabalin Allergy Severe Unverified 04/21/17 20:03 tizanidine Allergy Severe Unverified 04/21/17 20:03 Home Medications Medication Instructions Recorded Confirmed Type digoxin [Lanoxin] 0.25 mg PO DAILY 08/29/18 08/29/18 History fluticasone [Flovent HFA] 1 puff INHALATION Q12H 08/29/18 08/29/18 History folic acid 1 mg PO DAILY 08/29/18 08/29/18 History levetiracetam [Keppra] 500 mg PO BID 08/29/18 08/29/18 History lovastatin 40 mg PO HS 08/29/18 08/29/18 History memantine [Namenda XR] 28 mg PO HS 08/29/18 08/29/18 History methotrexate sodium 2.5 mg PO WEEKLY 08/29/18 08/29/18 History multivitamin 1 tab PO DAILY 08/29/18 08/29/18 History prednisone 10 mg PO DAILY 08/29/18 08/29/18 History ranitidine HCl [Zantac] 150 mg PO BID 08/29/18 08/29/18 History sucralfate [Carafate] 1 g PO ACHS 08/29/18 08/29/18 History Exam Vital signs: Vital Signs 08/29/18 18:03 08/29/18 18:14 08/29/18 18:20 Temperature 98.4 F Pulse Rate 93 H 90 Respiratory Rate 16 15 Blood Pressure 132/72 135/72 Pulse Oximetry 99 98 97 08/29/18 23:55 08/30/18 03:53 Temperature 97.3 F L 98.0 F Pulse Rate 93 H 71 Respiratory Rate 17 16 Blood Pressure 91/57 L 118/57 L Pulse Oximetry 96 98 Intake & Output 08/29/18 08/30/18 08/30/18 18:59 06:59 18:59 Weight 74.843 kg 74.843 kg Other: Weight On Admission 74.843 kg Narrative: GENERAL: Alert WN, WD, NAD, pleasant, poor historian, elderly female HEAD: NC, AT EYES: Sclera clear, conjunctiva without injection CV: RRR, without murmur, rub, gallop. RESP: Diminished lungs throughout bilateral, no crackles, wheeze, or rhonchi, symmetrical chest rise, nonlabored, able to speak in full sentences ABD: Soft, NT, ND, no masses, positive bowel tones EXT: Pulses +1x4, no dependent edema MS: Normal tone x4 extremities, nontender, no obvious deformities, full range of motion NEURO: Motor strength 5/5 PSYCH: A+O x3, pleasant affect, appropriate speech, mood, insight and judgment SKIN: Normal turgor, normal texture, no lesions, no rashes Results 08/29/18 18:35 08/29/18 18:35 Cardiac Enzymes 08/29/18 08/29/18 08/29/18 Range/Units 18:35 18:35 21:45 AST 20 (15-37) U/L Troponin I Less than 0.02 L Less than 0.02 L (0.02-0.05) ng/mL B-Natriuretic Peptide 34 (0-100) pg/mL 08/30/18 Range/Units 02:25 AST (15-37) U/L Troponin I Less than 0.02 L (0.02-0.05) ng/mL B-Natriuretic Peptide (0-100) pg/mL Coagulation 08/29/18 08/29/18 Range/Units 18:35 18:35 PT 9.5 L (9.8-11.6) sec APTT 28.0 (23.4-31.7) sec B-Natriuretic Peptide 34 (0-100) pg/mL CBC 08/29/18 Range/Units 18:35 WBC 11.1 H (4.0-11.0) th/mm3 RBC 4.14 (4.00-5.30) mil/mm3 Hgb 13.5 (11.6-15.3) gm/dL Hct 39.1 (35.0-46.0) % Plt Count 255 (150-450) th/mm3 Neut # (Auto) 7.4 (1.8-7.7) th/mm3 Lymph # (Auto) 2.6 (1.0-4.8) th/mm3 [place] # (Auto) 1.0 H (0.0-0.9) th/mm3 Eos # (Auto) 0.1 (0.0-0.4) th/mm3 Baso # (Auto) 0.1 (0.0-0.2) th/mm3 Comprehensive Metabolic Panel 08/29/18 Range/Units 18:35 Sodium 134 L (136-145) meq/L Potassium 4.1 (3.5-5.1) meq/L Chloride 99 (98-107) meq/L Carbon Dioxide 27.9 (21.0-32.0) meq/L BUN 18 (7-18) mg/dL Creatinine 1.07 H (0.50-1.00) mg/dL Calcium 9.4 (8.5-10.1) mg/dL AST 20 (15-37) U/L ALT 26 (10-53) U/L Alkaline Phosphatase 76 (45-117) U/L Total Protein 6.5 (6.4-8.2) g/dL Albumin 3.4 (3.4-5.0) g/dL Intake and Output 08/29/18 08/30/18 08/30/18 22:59 06:59 14:59 Other: Weight 74.843 kg 74.843 kg Weight On Admission 74.843 kg - Imaging and Cardiology Imaging: Impressions Chest X-Ray 08/29/18 18:03 CONCLUSION: 1. Cardiomegaly. 2. Discoid atelectasis and/or scarring within the left lung base. 3. Stable calcified granuloma within the right upper lobe. 4. Degenerative changes throughout the thoracic spine. EKG interpretations - EKG EKG results cardiology: sinus rhythm, normal axis, normal ST/T Caprini VTE Risk Assessment Caprini VTE Risk Assessment: Moderate/High Risk (score >= 2) Caprini Risk Assessment Model: Point Value = 1 Point Value = 2 Point Value = 3 Point Value = 5 Age 41-60 Minor surgery BMI > 25 kg/m2 Swollen legs Varicose veins or History of unexplained or recurrent spontaneous Oral contraceptives or hormone replacement Sepsis (< 1 month) Serious lung disease, including pneumonia (< 1 month) Abnormal pulmonary function Acute myocardial infarction Congestive heart failure (< 1 month) History of inflammatory bowel disease Medical patient at bed rest Age 61-74 Arthroscopic surgery Major open surgery (> 45 min) Laparoscopic surgery (> 45 min) Malignancy Confined to bed (> 72 hours) Immobilizing plaster cast Central venous access Age >= 75 History of VTE Family history of VTE Factor V Leiden Prothrombin [id number] Lupus anticoagulant Anticardiolipin antibodies Elevated serum homocysteine Heparin-induced thrombocytopenia Other congenital or acquired thrombophilia Stroke (< 1 month) Elective arthroplasty Hip, pelvis, or leg fracture Acute spinal cord injury (< 1 month) Prophylaxis Regimen: Total Risk Factor Score Risk Level Prophylaxis Regimen 0-1 Low Early ambulation 2 Moderate Order ONE of the following: *Sequential Compression Device (SCD) *Heparin 5000 units SQ BID 3-4 Higher Order ONE of the following medications: *Heparin 5000 units SQ TID *Enoxaparin/Lovenox 40 mg SQ daily (WT < 150 kg, CrCl > 30 mL/min) *Enoxaparin/Lovenox 30 mg SQ daily (WT < 150 kg, CrCl > 10-29 mL/min) *Enoxaparin/Lovenox 30 mg SQ BID (WT < 150 kg, CrCl > 30 mL/min) AND/OR *Sequential Compression Device (SCD) 5 or more Highest Order ONE of the following medications: *Heparin 5000 units SQ TID (Preferred with Epidurals) *Enoxaparin/Lovenox 40 mg SQ daily (WT < 150 kg, CrCl > 30 mL/min) *Enoxaparin/Lovenox 30 mg SQ daily (WT < 150 kg, CrCl > 10-29 mL/min) *Enoxaparin/Lovenox 30 mg SQ BID (WT < 150 kg, CrCl > 30 mL/min) AND *Sequential Compression Device (SCD) Assessment and Plan - Assessment (1) Nonspecific chest pain Code(s): R07.9 - Chest pain, unspecified Status: Acute Plan: Admitted chest pain center. ACS ruled out 3 sets of EKGs and cardiac enzymes. Seen and evaluated by Dr. Tank Scott. Patient poor historian unclear of cardiac history and presenting symptoms. Due to multiple risk factors proceed with Lexiscan. If unremarkable, plan is to discharge home with follow-up with primary care provider. Unclear of home medications at this time, plan to reorder home medications once updated in electrical medical record. [id number]-upon further discussion with patient's oldest daughter, denies mother's having history of myocardial infarction or cardiac stents. (2) Tobacco abuse Code(s): Z72.0 - Tobacco use Status: Chronic Plan: Strongly encouraged and stressed importance of tobacco cessation. Instructed to quit smoking. H&P: Quality - VTE Deep Vein Thrombosis/Pulmonary Embolism Present on Admission: No
[2018-08-30 08:36] VITALS: BP 134/62; PULSE 97; RESP 20; TEMP 97.5; O2SAT 95
--- NOTE | 2018-08-30 08:46 | ECG ---
Date Performed: 08/29/2018 Time Performed: 21:45:01 PTAGE: 83 years EKG: Sinus rhythm LEFT ATRIAL ENLARGEMENT PATTERN CONSISTENT WITH PULMONARY DISEASE INCOMPLETE RIGHT BUNDLE BRANCH BLO CK LEFT ANTERIOR FASCICULAR BLOCK ABNORMAL ECG PREVIOUS TRACING : 08/29/2018 18.08 Since previous tracing, no significant change noted DOCTOR: Tank Scott Interpretating Date/Time 08/30/2018 08:45:44
--- NOTE | 2018-08-30 08:46 | ECG ---
Date Performed: 08/29/2018 Time Performed: 22:34:17 PTAGE: 83 years EKG: Sinus rhythm WITH SHORT OH INTERVAL PATTERN CONSISTENT WITH PULMONARY DISEASE INCOMPLETE RIGHT BUNDLE BRANCH BLOC K LEFT ANTERIOR FASCICULAR BLOCK ABNORMAL ECG PREVIOUS TRACING : 08/29/2018 21.45 Since previous tracing, no significant change noted DOCTOR: Tank Scott Interpretating Date/Time 08/30/2018 08:45:34
--- NOTE | 2018-08-30 08:47 | ECG ---
Date Performed: 08/29/2018 Time Performed: 18:08:10 PTAGE: 83 years EKG: Sinus rhythm LEFT ATRIAL ENLARGEMENT PATTERN CONSISTENT WITH PULMONARY DISEASE INCOMPLETE RIGHT BUNDLE BRANCH BLO CK LEFT ANTERIOR FASCICULAR BLOCK ABNORMAL ECG INTERPRETATION BASED ON A DEFAULT AGE OF 40 YEARS PREVIOUS TRACING : 01/31/2017 19.42 Since previous tracing, no significant change noted DOCTOR: Tank Scott Interpretating Date/Time 09/01/2018 06:38:37
[2018-08-30] MEDS ORDERED: Regadenoson Inj 0.4 MG/5 ML Syringe IV.PUSH ONE (09:17)
--- NOTE | 2018-08-30 10:49 | NM ---
EXAM DATE: 08/30/2018 10:46 AM EST AGE/SEX: 83 years / Female INDICATIONS:Angina. Myocardial infarction Chest pain. CLINICAL DATA: This is the patient's initial encounter. Patient reports that signs and symptoms have been present for 1 day and indicates a pain score of 7/10. MEDICAL/SURGICAL HISTORY: Hypertension. Chronic obstructive pulmonary disease. Smoker. Hyster ectomy. COMPARISON: No prior exams available for comparison. DOSE: 8.6 mCi Tc 99m Myoview at rest 26.4 mCi [id number] at stress 0.4 mg Lexiscan STRESS SYMPTOMS: Lightheaded. EJECTION FRACTION: > 70 % TECHNIQUE: The patient underwent pharmacologic stress with infusion of prescribed dose. Continuous ECG tracing was monitored during stress. Gated SPECT imaging was performed after stress and conventi onal SPECT imaging was performed at rest. The examination was performed on a SPECT/CT scanner, both attenuation and non-corrected datasets were reviewed. FINDINGS: Distribution: The maximum perfused segment at stress is in the septal wall. Perfusion Study: The pattern of perfusion at stress is within normal limits. Gated Study: There are intact wall motion and wall thickening without hypokinetic or dyskinetic segm ents. The ejection fraction is calculated at > 70%. RISK CATEGORY: Low (<1% Annual Motality Rate) CONCLUSION: 1. Unremarkable myocardial perfusion examination. Electronically signed by: Denis Bermeo MD Board Certified Radiologist 08/30/2018 10:48 AM EST
--- NOTE | 2018-09-01 15:11 | TR ---
Date Performed: 08/30/2018 Time Performed: 09:25:28 DOCTOR: Tank Scott DRUG LIST: CLINICAL HISTORY: REASON FOR TEST: REASON FOR ENDING: OBSERVATION: CONCLUSION: COMMENTS: Lexiscan stress test was performed under standard four minute protocol. Radionuclide was injected one minute prior to ending the test. No electrocardiographic abormalities were present t o suggest ischemia. Nuclear imaging and interpretation are pending.
== END 2018-08-30 13:20 | disposition home or self-care (01) ==
LOC: NEDA 17:55 → NEPC 17:55 → NEPHCDU 22:16
CPT/HCPCS: 71010; 71045; 78452; 80053; 82550; 83520; 83735; 83880; 84484; 85025; 85610; 85730; 93005; 93017; 99285; A9502; G0378; J2785; Q9969